=== PATIENT | male | born 1995 | race African-American/Black ===

== ENCOUNTER 2018-07-22 09:09 | Day surgery (SDC) | payer OTHER ==
[~2018-07-22] VITALS: Ht 180.3 cm; Wt 93.0 kg
[2018-07-22] VITALS (9 sets, daily range): BP systolic 128–145; BP diastolic 62–77
[~2018-07-22 09:09] MED LIST: Ketorolac 30mg Inj ONE; Lidocaine 1% MPF 10mg/ml 5ml ONE; Midazolam 2mg/2ml Inj ONE; NKM; Propofol 200mg/20ml IV ONE; ceFAZolin sod 1 GM in NS 55 ML IVPB ONE; fentaNYL 100 mcg/2 mL IV ONE
[2018-07-22] MEDS ORDERED: METRONIDAZOLE500 MG ORAL (09:54)
[2018-07-22] MEDS ORDERED: NKM (10:00)
--- NOTE | 2018-07-22 10:07 | Pre-Procedure Note/Attestation ---
Pre-Procedure Note/Attestation Complete Prior to Procedure Planned Procedure: right Procedure Narrative: Right knee arthroscopy, menisectomy, chondroplasty, excision of loose bodies and related procedures Attestation I attest that I discussed the nature of the procedure; its benefits; risks and complications; and alternatives (and the risks and benefits of such alternatives ), prior to the procedure, with the patient (or the patient's legal professional healthcare representative). I attest that, if there was a reasonable possibility of needing a blood transfusion, the patient (or the patient's legal professional healthcare representative) was given the [facility] standardized written summary, pursuant to the Carlos Rusty Blood Safety Act ([place] Health and Safety Code # 1645, as amended). I attest that I re-evaluated the patient just prior to the surgery and that there has been no change in the patient's H&P, except as documented below: Jj Alberto MD Jul 22, 2018 10:07
[2018-07-22] MEDS ORDERED: D5 1/2NS 1,000 ML IV SCH (10:09)
[2018-07-22] MEDS ORDERED: Naloxone 0.4mg/ml Inj IVP PRN (10:15)
[2018-07-22] MEDS ORDERED: Norco 5mg/325mg tab ORAL PRN (10:15)
[2018-07-22] MEDS ORDERED: HYDROcodone/Acetamin 7.5/325 tab ORAL PRN ×2 (10:15)
[2018-07-22] MEDS ORDERED: HYDROmorphone 1mg/ml Carpuject SUBQ PRN (10:15)
[2018-07-22] MEDS ORDERED: LR 1000ml ONE (10:30)
[2018-07-22] MEDS ORDERED: LR 1000ml 1,000 ML IVLG SCH (10:59)
--- NOTE | 2018-07-22 10:59 | Anethesia Preoperative Eval ---
Anesthesia Pre-op PMH/ROS General Date of Evaluation: Jul 22, 2018 Time of Evaluation: 10:20 Anesthesiologist: Madeline ASA Score: ASA 2 Mallampati Score Class I : Soft palate, uvula, fauces, pillars visible Class II: Soft palate, uvula, fauces visible Class III: Soft palate, base of uvula visible Class IV: Only hard plate visible Mallampati Classification: Class II Surgeon: Remy Diagnosis: R knee pain Surgical Procedure: R knee scope Anesthesia History: none Family History: no anesthesia problems Allergies: Coded Allergies: No Known Allergies (Unverified , 07/22/18) Medications: see eMAR Patient NPO?: Yes Past Medical History Cardiovascular: Denies: HTN, CAD, NC, valve dz, arrhythmia, other Pulmonary: Denies: asthma, COPD, NATALYA, other Gastrointestinal/Genitourinary: Reports: GERD - mild; Denies: CRI, ESRD, other Neurologic/Psychiatric: Denies: dementia, CVA, depression/anxiety, TIA, other Endocrine: Denies: DM, hypothyroidism, steroids, other HEENT: Denies: cataract (L), cataract (R), glaucoma, [place] (L), [place] (R), other Hematology/Immune: Denies: anemia, DVT, bleeding disorder, other Musculoskeletal/Integumentary: Denies: OA, RA, DJD, DDD, edema, other Other: other - overweight PMH Narrative: as above PSxH Narrative: none Anesthesia Pre-op Phys. Exam Physician Exam Last Vital Signs Date Time Temp Pulse Resp B/P (MAP) Pulse Ox O2 Delivery O2 Flow Rate FiO2 07/22/18 09:51 Room Air 07/22/18 09:49 98.9 91 20 145/71 100 Constitutional: NAD Neurologic: CN 2-12 intact Cardiovascular: RRR, no M/R/G Respiratory: CTA Gastrointestinal: S/NT/ND Airway Exam Mallampati Score: Class II MO: full Neck: flexible ROM: full Teeth: intact Dentures: no upper, no lower Anesthesia Pre-op A/P Labs see chart Studies Pre-op Studies: EKG - NSR Risk Assessment & Plan Assessment: ASA 2 Plan: GA with LMA Status Change Before Surgery: No Pre-Antibiotics Drug: Ancef 2gr. Given Within 1 Hr of Incision: Yes Time Given: 10:38 Jose Correa MD Jul 22, 2018 10:59
[2018-07-22] MEDS ORDERED: Metoclopramide 10mg/2ml Inj IVP PRN (11:00)
[2018-07-22] MEDS ORDERED: DiphenhydrAMINE 50mg/ml Inj IVP PRN (11:00)
[2018-07-22] MEDS ORDERED: NS Irrig 4000ml IRRIG ONE (11:00)
[2018-07-22] MEDS ORDERED: Ketorolac 30mg Inj IV PRN (11:00)
[2018-07-22] MEDS ORDERED: Midazolam 2mg/2ml Inj IVP PRN (11:00)
[2018-07-22] MEDS ORDERED: Meperidine 50mg/ml Inj(FOR RIGORS ONLY) IV PRN (11:00)
[2018-07-22] MEDS ORDERED: Lidocaine 1% MPF 10mg/ml 5ml INJ ONE (11:25)
--- NOTE | 2018-07-22 11:53 | Immediate Post-Op Evaluation ---
Immediate Post-Op Evalulation Immediate Post-Op Evalulation Procedure: R knee arthroscopy, meniscectomy Date of Evaluation: Jul 22, 2018 Time of Evaluation: 11:52 IV Fluids: 800 Blood Products: none Estimated Blood Loss: min Urinary Output: none Blood Pressure Systolic: 136 Blood Pressure Diastolic: 74 Pulse Rate: 86 Respiratory Rate: 20 O2 Sat by Pulse Oximetry: 99 Temperature (Fahrenheit): 97.6 Pain Score (1-10): 2 Nausea: No Vomiting: No Complications none Patient Status: reacts, patent, none Hydration Status: adequate Jose Correa MD Jul 22, 2018 11:53
[2018-07-22] MEDS ORDERED: Zemuron 50mg/5ml Inj IV ONE (12:38)
--- NOTE | 2018-07-22 13:25 | 48 Hour Post Anesthesia Eval ---
Post Anesthesia Evaluation Procedure: R knee arthroscopy, meniscectomy Date of Evaluation: Jul 22, 2018 Time of Evaluation: 13:23 Blood Pressure Systolic: 132 0: 56 Pulse Rate: 82 Respiratory Rate: 20 Temperature (Fahrenheit): 97.6 O2 Sat by Pulse Oximetry: 98 Airway: patent Nausea: No Vomiting: No Pain Intensity: 2 Hydration Status: adequate Cardiopulmonary Status: stable Mental Status/LOC: patient returned to baseline Follow-up Care/Observations: n/a Post-Anesthesia Complications: none Follow-up care needed: ready to discharge Jose Correa MD Jul 22, 2018 13:25
--- NOTE | 2018-07-22 13:37 | NUR ---
[facility] PT NOTE CONSULT RECEIVED, SILVIA COMPLTED, CRUTCH TRAINING PASSED. PATIENT VERBALIZD AND DEMONSTRATED UNDERSTANDING. PATIENT INSISTED ONLY ON VISUAL DEMONSTRATION AND EXPLANATION WAS ENOUGH AND THAT HE HAD PRACTICED BEFORE. NO FURTHER NEEDS. KYLE RUTLEDGE PT DPT Addendum: 07/22/18 at 1337 by KYLE RUTLEDGE PT Amended: Links added.
--- NOTE | 2018-07-23 19:15 | Operative Note - Dictated ---
DATE OF OPERATION: 07/22/2018 PREOPERATIVE DIAGNOSIS: Right knee medial meniscus tear with cortical bone marrow edema and mild effusion. POSTOPERATIVE DIAGNOSIS: Right knee medial meniscus tear with chondral lesion, medial femoral condyle. PROCEDURE PERFORMED: 1. Right knee partial medial meniscectomy. 2. Right knee medial femoral condyle chondroplasty. SURGEON: Jj Alberto M.D. ANESTHESIA: General endotracheal anesthesia. ANESTHESIOLOGIST: Jose Correa M.D. INTRAVENOUS ANTIBIOTICS: A 1 gram of Ancef. TOURNIQUET TIME: minutes at 275 mmHg. BACKGROUND: This is a pleasant male, who failed nonoperative treatment and option for above treatment was given. Risks, alternatives, and benefits were discussed with the patient. Risks include, but are not limited to, anesthesia complications including , medical complications including liver, kidney, and cardiopulmonary deficits, knee septic arthritis, worsening of the knee pain, neurovascular injury, chondral injury, need for future surgery, compartment syndrome, as well as other complications. The patient understood and wished to proceed. Written and verbal consent was given. No guarantees were given. All the patient's questions were answered. OPERATIVE FINDINGS: 1. Right knee, large tear of the medial meniscus involving the body of the medial meniscus and the posterior horn accomplishing approximately 60% of the medial meniscus. 2. Grade 2 to grade 3 chondral lesion, medial femoral condyle over 5 x 7 mm lesion at approximately 80 degrees of flexion as well as a 3 x 5 mm chondral lesion of the medial femoral condyle at approximately 45 degrees of knee flexion. OPERATIVE PROCEDURE: The patient was brought into the operating room supine on a stretcher. A surgical time-out was called. Appropriate IV lines were placed. The patient was induced and general anesthesia was given. A 1 g of Ancef was administered. The patient was placed onto the operating room table. A well-padded tourniquet was placed around the right thigh. Legs were placed into the leg garcia. The operative extremity was prepped and draped in the usual sterile fashion. Esmarch was used to exsanguinate the leg and tourniquet was elevated to 275 mmHg. Standard arthroscopic portals were placed anterolaterally and then anteromedially with an aid of spinal needle and arthroscopic knee was undertaken. The above findings were noted. The medial compartment revealed a tear of the body and posterior horn of the medial meniscus. There was also chondral lesion over the medial femoral condyle. At this point, attention was diverted to the medial meniscus. A basket punch was used to do a partial medial meniscectomy of the body and the posterior horn of the medial meniscus. This was completed with a full-radius shaver until a balanced and stable rim of meniscus was achieved. Approximately 60% of the posterior horn and body of the medial meniscus were removed. Attention now was diverted to the chondral lesions with a nonaggressive full-radius shaver. Gentle chondroplasty of the chondral lesions of the medial femoral condyle was accomplished until there was a stable and balanced rim of hyaline cartilage and there was no further loose articular debris. Attention now was diverted to the intercondylar notch. A limited synovectomy was accomplished and in the intercondylar notch there was approximately 20% thickness tear of anterior cruciate ligament. The remaining fibers of the anterior cruciate ligament were stable. Preoperative ligamentous exam under anesthesia of the ACL and PCL were done. There was no significant ligamentous laxity on physical examination preoperatively and while the patient was under anesthesia. Attention now was diverted to the lateral compartment. There was no lateral meniscus tear. The chondral surfaces of the lateral femoral condyle on the lateral tibial plateau were normal. The patellofemoral compartment and the suprapatellar pouch were normal. There were no loose bodies in the medial and lateral gutters. The attention now was diverted to closure. Further probing of the medial meniscus was done. There was no further force. All instruments were removed. All sponge, needle, and instrument counts were correct. The skin was closed with 3-0 nylon sutures in a watertight interrupted fashion. Xeroform was applied. Sterile dressing and Garret bandage was applied. The patient was extubated without complication, was taken to the recovery room in stable condition, was found to be neurovascularly intact. There was no complications at the end of the case. Postoperative instructions were given. Jj Alberto M.D. DR: Rajesh JOB#: [id number] CC:
== END 2018-07-22 13:40 | disposition home or self-care (01) ==
LOC: SUR 09:09
DX: M23.221 Derangement of posterior horn of medial meniscus due to old tear or injury, right knee (principal); M94.8X6 Other specified disorders of cartilage, lower leg; G89.29 Other chronic pain; K21.9 Gastro-esophageal reflux disease without esophagitis; E66.3 Overweight
CPT/HCPCS: 94003; 94150; J2250; J2405